=== PATIENT | male | born 1995 | race Caucasian/White ===

== ENCOUNTER 2021-08-24 10:07 | Outpatient (REF) | payer OTHER, SELFPAY ==
[2021-08-24 13:39] LABS: Hematocrit 41.6 % (42.0-52.0); Hemoglobin 14.2 g/dl (14.0-18.0); Mean Corpuscular HGB Conc 34.1 g/dl (31.0-36.0); Mean Corpuscular Hemoglobin 30.8 pg (27.0-33.0); Mean Corpuscular Volume 90.2 fL (80.0-98.0); Mean Platelet Volume 11.2 fL (9.4-12.4); Platelet Count 195 X10*3/uL (160-400); Red Blood Count 4.61 X10*6/uL (4.60-5.80); Red Cell Distribution Width 12.9 % (11.0-16.0)
[2021-08-24 13:50] LABS: WBC ABN SCTR FOR CBC 1
[2021-08-24 14:12] LABS: Atypical Lymphs Percent Manual 9 % (0-6); Band Neutrophils Percent 2 % (3-5); Basophils Percent Manual 1 % (0-2); Lymphocytes Percent Manual 61 % (20-40); Monocytes Percent Manual 13 % (2-11); Neutrophils Percent Manual 14 % (45-73)
[2021-08-24 14:17] LABS: Platelet Estimate NORMAL (NORMAL); Platelet Morphology Comment NORMAL; RBC Morphology NORMAL; Smudge Cells PRESENT
[2021-08-24 14:18] LABS: Erythrocyte Sedimentation Rate 7 MM/HR (0-15)
[2021-08-24 14:20] LABS: Atypical Lymph Absolute Manual 1.3 x10*3/uL; Basophils Abs Manual 0.1 X10*3/uL (0.0-0.2); Lymphocytes Absolute Manual 8.9 X10*3/uL (1.2-4.9); Monocytes Absolute Manual 1.9 X10*3/uL (0.1-1.2); Neutrophils Absolute Manual 2.3 X10*3/uL (2.0-8.3); White Blood Count 14.6 X10*3/uL (4.8-10.8)
[2021-08-24 14:21] LABS: Alanine Aminotransferase 1199 U/L (0-40); Albumin Level 4.5 g/dL (3.5-5.0); Alkaline Phosphatase 372 U/L (39-117); Anion Gap 15 (12-20); Aspartate Amino Transferase 404 U/L (5-37); Bilirubin Total 1.3 mg/dL (0.0-1.0); Blood Urea Nitrogen 8 mg/dL (9-16); Calcium 9.2 mg/dL (8.4-10.2); Carbon Dioxide 24 mmol/L (22-29); Chloride 104 mmol/L (96-108); Estimated Glomerular Filt Rate > 60; Glucose Fasting 98 mg/dL (60-99); Potassium 4.3 mmol/L (3.3-5.1); Sodium 139 mmol/L (135-145); Total Protein 7.5 g/dL (6.5-8.0)
[2021-08-24 14:50] LABS: Monotest Positive (Negative)
== END 2021-08-24 10:08 | disposition home or self-care (01) ==
LOC: HO.10HDL 10:07
PROVIDERS: Visit Provider Internal Medicine Medical Oncology
DX: Z20.828 Contact with and (suspected) exposure to other viral communicable diseases (principal)
CPT/HCPCS: 36415; 80053; 85007; 85027; 85652; 86308

== ENCOUNTER 2021-08-29 14:17 | Outpatient (REF) | payer OTHER, SELFPAY | END 2021-08-29 14:18 | disposition home or self-care (01) | LOC: HO.LNP 14:17 | PROVIDERS: Visit Provider Internal Medicine Medical Oncology | DX: J04.0 Acute laryngitis (principal) | CPT/HCPCS: 87071; 87147; 87205 ==

== ENCOUNTER → 2023-01-16 10:28 | Outpatient (REF) | payer OTHER, SELFPAY ==
--- NOTE | 2023-01-16 11:35 | CA_ITS ---
Acquisition Time: 2023-01-16 10:42:58 Total Exercise Time: 00:14:08 Test Indications: CP Medications: SEE H Protocol: RAQUEL Max HR: 193 BPM 100% of Pred: 192 BPM Max BP: 174/070 mmHG Max Work Load: 17.2 METS Exercise stress test 14 min 8 sec of Raquel protocol achireving 100% MPHR, without anginal symptoms, once in recovery he reported 4/10 left chest squeezing, without arrythmia, with normotensive response to exercise, without EKG changes. CHest discomort gradually improved in recovery. Test reviewed with Dr. Kauffman. Msg sent to Dr Ledesma with above report. Referred By: Marques Ledesma Overread By: JAMEY MITCHELL
== END ==
LOC: HO.CARD 10:28
PROVIDERS: Visit Provider Internal Medicine Medical Oncology
DX: R07.9 Chest pain, unspecified (principal)
CPT/HCPCS: 93017

== ENCOUNTER → 2023-06-02 13:42 | Outpatient (REF) | payer OTHER, SELFPAY ==
--- NOTE | 2023-06-02 13:46 | CA_ITS ---
Transthoracic Echocardiogram Patient (Last, First, Middle): Roland Rojas, Gender: Male Date of : 1995 Age: 28 Procedure Date: 06/02/2023 Procedure Type: Transthoracic Echocardiogram Location: OP Height: 175.26 cm Weight: 92.99 kg BSA: 2.09 m2 Heart Rate: bpm BP: 135 / 90 mmHg Crop Duster Helper: JUANA Referring MD: Marques Leedsma MD Symptoms: ATYPICAL CHEST PAIN, 407.89 MITRAL VALVE PROLAPSE 134.1 Study Quality: Adequate ECG Rhythm: Sinus Conclusions: - The left ventricular systolic function is normal. The calculated ejection fraction is 65% by biplane method. - No obvious valvular pathology seen on this study. Findings Left Ventricle Normal left ventricular cavity size. There is normal left ventricular wall thickness. The left ventricular systolic function is normal. The calculated ejection fraction is 65% by biplane method. There is no evidence of regional wall motion abnormalities. Diastolic function is normal for age. LV peak GLS -18.7%. Right Ventricle Normal right ventricular cavity size and systolic function. Atria Both atria are normal in size. Aortic Valve There is a normal trileaflet aortic valve. There is no aortic valve stenosis. There is no aortic valve regurgitation. Mitral Valve The mitral valve appears normal. There is trace mitral valve regurgitation. There is no mitral valve stenosis. Pulmonic Valve The pulmonic valve is likely normal. Tricuspid Valve Normal tricuspid valve structure. There is trace tricuspid valve regurgitation. There is no evidence of pulmonary hypertension. Great Vessels The asc aorta and aortic arch are normal in size. Venous The inferior vena cava is normal in size and collapses greater than 50% with inspiration. Pericardium/Pleural There is no evidence of pericardial effusion. Prior Study Comparison No prior study available for comparison. Recommendations, Care & Conclusions No obvious valvular pathology seen on this study. Measurements 2D Linear Measurements IVSd: 0.86 0.6-0.9/0.6-1.0 cm LVIDd: 5.15 3.9-5.3/4.2-5.9 cm LVIDd Index: 2.46 2.4-3.2/2.2-3.1 cm/m2 LVIDs: 3.29 2.0-3.6 cm LVPWd: 0.83 0.7-1.1 cm LA Diam: 3.60 2.7-3.8/3.0-4.0 cm LAIDs Index: 1.72 1.5-2.3 cm/m2 LV Mass: 191.64 67-162/88-224 g LV Mass Index: 91.69 43-95/49-115 g/m2 LVOT Diam: 2.30 3.0+(-)1.3 cm 2D Systolic Function EF 4C: 58.10 >55% EF 2C: 69.10 >55% EF BiP: 64.60 >55% Mitral Valve MV Pk E: 0.86 MV PK A: 0.57 MV Decel Time: 258.00 E/A: 1.50 E'Lateral: 16.80 E'Medial: 8.59 E/E' Med: 10.00 E/E' Lat: 5.10 PHT: 76.00 MVA PHT: 2.89 Decel Addison: 3.32 Aortic Valve AoV Pk Jose: 1.24 AoV Mn Jose: 0.83 AoV VTI: 0.26 AoV Pk Grad: 6.00 Aov Mn Grad: 3.00 LUPE Cont.VTI: 3.85 LVOT LVOT Pk Jose: 1.25 LVOT Mn Jose: 0.81 LVOT VTI: 0.24 LVOT Pk Grad: 6.00 LVOT Mn Grad: 3.00 LVOT Diam: 2.30 LVOT Area: 4.15 Diastolic Function MV Pk E: 0.86 MV Pk A: 0.57 E/A: 1.50 E'Medial: 8.59 E/E' Med: 10.00 E' Laterial: 16.80 E/E' Lat: 5.10 Right Ventricle TAPSE (mm): 24.40 TVS' Jose: 13.40 Tricuspid Valve TR Pk Jose: 2.21 TR Pk Grad: 20.00 RA Press: 3.00 RVSP: 23.00 Great Vessels Aorta Sinus of Valsalva: 3.29 2.0-3.[address] Ridge: 2.74 1.7-3.4 cm Ao Asc: 2.90 2.1-3.4 cm Ao Arch: 2.90 Updated in Other Vendor System with Status of Final Anthony Astudillo MD electronically signed on 06/03/2023 10:37:56 AM with status of Final
== END ==
LOC: HO.CARD 13:42
PROVIDERS: PCP Internal Medicine Medical Oncology; Visit Provider Internal Medicine Medical Oncology
DX: R07.89 Other chest pain (principal); I34.1 Nonrheumatic mitral (valve) prolapse
CPT/HCPCS: 93306; 93356

== ENCOUNTER → 2023-06-02 13:46 | Outpatient (BNV) | payer OTHER, SELFPAY | PROVIDERS: PCP Internal Medicine Medical Oncology; Visit Provider Internal Medicine | DX: R07.89 Other chest pain (principal) | CPT/HCPCS: 93306 ==

== ENCOUNTER 2024-12-14 09:40 | Outpatient (REF) | payer OTHER, SELFPAY ==
--- NOTE | ~2024-12-14 | US_ITS ---
EXAMINATION: US ABDOMEN HISTORY: RLQ ABD PAIN TECHNIQUE: Real-time grayscale ultrasound imaging of the abdomen was performed and images were reviewed. COMPARISON: There are no prior studies for comparison. FINDINGS: Liver: The right lobe of the liver measures 15.6 cm in size. The left lobe of the liver measures 8.5 cm in size. The liver demonstrates normal homogeneous echotexture. No focal mass or intrahepatic biliary ductal dilatation is identified. There is normal hepatopedal flow in the portal vein. Gallbladder and biliary tree: The gallbladder is unremarkable, without evidence of calculi, wall thickening, or pericholecystic fluid. There is no sonographic Strickland sign. The common bile duct is normal in caliber measuring 3 mm. Kidneys: The right kidney measures 12.7 cm in length. The left kidney measures 11.6 cm in length. The kidneys are unremarkable, without evidence of masses, hydronephrosis, or calculi. Pancreas: The pancreatic head, neck, and body are unremarkable. The pancreatic tail is obscured by bowel gas. Spleen: The spleen is normal in size and contour, measuring 12.2 cm in length. Abdominal aorta and inferior vena cava: The visualized portions of the abdominal aorta and inferior vena cava are normal in caliber. There is no free fluid in the abdomen. US/US abdomen complete IMPRESSION: Unremarkable abdominal ultrasound. Electronically signed by: Marques Young MD 12/14/2024 10:51 AM EDT
--- OUTSIDE RECORDS SUMMARY | 2024-12-14 10:57 | XMS_ITS | Clinical Summary ---
Author Organization [facility] ity Address [address] [place] [address] Care Team Providers Care Tire Center Supervisor Name Role Phone Unavailable Primary Care Provider Unavailabl e Social History Tobacco Use Types Packs/Day Years Used Date Smoking Tobacco: Never Assessed Sex and Gender Information Value Date Recorded Sex Assigned at Not on file Legal Sex Male 5:53 PM EST Gender Identity Not on file Sexual Orientation Not on file Plan of Treatment Health Maintenance Due Date Last Done Comments DTaP,Tdap,and Td Vaccines (1 - Tdap) 2013 Hepatitis B Vaccines (1 of 3 - 19+ 3-dose series) 2013 Depression Screening 08/24/2022 HIV Screening 08/24/2022 Hepatitis C Screening 08/24/2022 Social Influencers of Health Screening 08/24/2022 COVID-19 Vaccine ( - 2023-2 5 season) 2024 Influenza Vaccine (#1) 2024 HIB Vaccines Aged Out No longer eligi ble based on patient's age to complete this topic HPV Vaccines Aged Out No longer eligi ble based on patient's age to complete this topic Hepatitis A Vaccines Aged Out No long er eligible based on patient's age to complete this topic IPV Vaccines Aged Out No longer eligi ble based on patient's age to complete this topic MMR Vaccines Aged Out No longer eligi ble based on patient's age to complete this topic Meningococcal ACWY Vaccine Aged Out N o longer eligible based on patient's age to complete this topic Meningococcal B Vacine Aged Out No lo nger eligible based on patient's age to complete this topic Pneumococcal Vaccine: Pediat rics (0 to 5 Years) and At-Risk Patients (6 to 64 Years) Aged Out No longer eligible b ased on patient's age to complete this topic RSV Immunization Patients Un sai 20 months Aged Out No longer eligible b ased on patient's age to complete this topic Varicella Vaccines Aged Out No longer eligible based on patient's age to complete this topic
--- OUTSIDE RECORDS SUMMARY | 2024-12-14 10:57 | XMS_ITS ---
Author Organization Marques Ledesma III, MD Address [address] [place] [address] [place] [address] Care Team Providers Care Park Activities Coordinator Name Role Phone Marques Ledesma Primary Care Provider REASON FOR VISIT Annual Exam Social History Sex Assigned At : Social History Observation Description Sex Assigned At Male Encounters Encounter Location Date Provider Diagnosis Marques Ledesma III, MD [address] [place] [address] [address] [facility] [address] 10/29/2024 Marques Ledesma Plan Of Treatment Next Appt Details Provider Name:Marques Ledesma, 12/20/2024 03:15:00 PM, [address] [place] [address] [place], [address], Provider Name:Marques Ledesma, 03/22/2025 02:30:00 PM, [address] [place] [address] [place], [address], Progress Notes * ERASMO ROJAS JrDOB:03/1995 (29 yo M)Acc No.[id number]:10/29/2024 Progress Notes Patient:?ERASMO ROJAS Provider:?Marques Ledesma MD :1995???Age:29 Y???Sex:Male Frank e:10/29/2024 Address:[address] [place] [address] Subjective: * Chief Complaints: * ???1. Annual Exam. * Medical History:? Objective: * Vitals:? Assessment: Plan: * Treatment: * Images: * The named appointment provid er may or may not be the originator of this progress note, and it is not deemed complete until electronically signed by the appointment provider. Sign off status: Pending * Provider:?Marques Ledesma MD Date:?03/2025 Generated for Radha gillis/Sunny/eTphuongsmitting on:?12/14/2024 10:56 AM EDT
--- OUTSIDE RECORDS SUMMARY | 2024-12-14 10:57 | XMS_ITS | Clinical Summary ---
Author Organization [address] Address [address] [place] [phone] Phone Care Team Providers Care Dyed Raw Stock Blower Feeder Name Role Phone Marques Ledesma MD Primary Care Provider [phone] Allergies Active Allergy Reactions Criticality Noted Date Comments Bee Venom Protein (Honey Bee) Anaphylaxis High 11/01 Cephalexin Throat Closes 11/01/2024 Azithromycin Anaphylaxis High 11/01/2024 Encounters Date Type Department Care Team Description 11/01/2024 12:00 PM EST - 11/01/2024 1:36 PM EST Emergency Emergency Department [address] [place] [phone] Chest pain, unspecified type (Primary Dx) Discharge Disposition: Home or Self Care 11/01/2024 Travel from Last 3 Months Social History Tobacco Use Types Packs/Day Years Used Date Smoking Tobacco: Never Smokeless Tobacco: Never Tobacco Cessation:Counseling Given: Not Answered Alcohol Use Standard Drinks/Week Comments Not Asked 0 (1 standard drink = 0.6 oz pur e alcohol) socially Interpersonal Safety Answer Date Record ed Is there anyone in your life that is hurting or threatening you in anyway? no 11/01/2024 Physical Indicators of Abuse No evidence of phys ical abuse 11/01/2024 Sex and Gender Information Value Date Recorded Sex Assigned at Not on file Legal Sex Male 11:49 AM EST Gender Identity Not on file Sexual Orientation Not on file Last Filed Vital Signs Vital Sign Reading Time Taken Comments Blood Pressure 132/83 11/01/2024 1:35 PM EST Pulse 77 11/01/2024 1:35 PM EST Temperature 36.4 ??C (97.5 ??F) 11/01/2024 11:[address] Respiratory Rate 16 11/01/2024 1:35 PM EST Oxygen Saturation 95% 11/01/2024 1:35 PM EST Inhaled Oxygen Concentration - - Weight 89.6 kg (197 lb 8.5 oz) 11/01/2024 11:59 AM EST Height - - Body Mass Index - - Plan of Treatment Health Maintenance Due Date Last Done Comments HIV screening 2007 Hepatitis C screening 01/27/2012 Tetanus adult (Td q 10,TDAP once) 2014 Influenza vaccine 04/22/2024 08/08/2020 Covid-19 vaccine series ( - 2023- season) 2024 RSV Immunization (1 - 1-dose 75+ series) 2069 Meningococcal Vaccine Aged Out No francisco amanda eligible based on patient's age to complete this topic Pneumococcal Vaccine (2 - 49 years) Aged Out No longer eligible b ased on patient's age to complete this topic Procedures Procedure Name Priority Date/Time Associated Diagnosis Comments XR CHEST PA AND LATERAL STAT 11/01/2024 1:02 PM EST EXTRA GOLD TOP SPECIMEN ([facility]) STAT 11/01/2024 12:24 PM EST EXTRA BLUE TOP SPECIMEN ([facility]) STAT 11/01/2024 12:24 PM EST CBC AND DIFFERENTIAL STAT 11/01/2024 12:23 PM EST BASIC METABOLIC PANEL STAT 11/01/2024 12:23 PM EST CBC WITH AUTO DIFFERENTIAL STAT 11/01/2024 12:23 PM EST BASIC METABOLIC PANEL STAT 11/01/2024 12:23 PM EST TROPONIN T HIGH SENSITIVITY, 0 HOUR BASELINE WITH REFLEX ([facility] LMW YH) STAT 11/01/2024 12:23 PM EST EKG Routine 11/01/2024 11:56 AM EST from Last 3 Months Results * CXR (11/01/2024 1:02 PM EST) Anatomical Region Laterality Modality Chest Radiographic Maame ging 11/01/2024 1:38 PM EST Impressions 11/01/2024 1:38 PM EST No evidence for an acute cardiopneumonic process. [facility] Radiology Notification System Classification: Routine. Reported and signed by: ??Nav Champion MD Narrative 11/01/2024 1:38 PM EST PROCEDURE: ??XR CHEST PA AND LATERAL CLINICAL INDICATION: CP not otherwise specified TECHNIQUE: PA and lateral views COMPARISON: ??No prior imaging available FINDINGS: Lungs are relatively well expanded without evidence for infiltrate. ??Pleural spaces appear clear. ??Cardiomediastinal silhouette and pulmonary vasculature appear within normal limits. ??No acute osseous fracture noted. Procedure Note Nav Champion MD - 11/01/2024 PROCEDURE: XR CHEST PA AND LATERAL CLINICAL INDICATION: CP not otherwise specified TECHNIQUE: PA and lateral views COMPARISON: No prior imaging available FINDINGS: Lungs are relatively well expanded without evidence for infiltrate.Pleural spaces appear clear. Cardiomediastinal silhouette and pulmonaryvasculature appear within normal limits. No acute osseous fracturenoted. IMPRESSION: No evidence for an acute cardiopneumonic process. [facility] Radiology Notification System Classification: Routine. Reported and signed by: Nav Champion MD Meryl RIVERA IMG DIAGNOSTIC IMAGING ORDERABLES Final Result * Extra blue top specimen (11/01/2024 12:24 PM EST) Hold Specimen Hold 11/01/2024 9:00 PM EST [facility] Blood Venipuncture / Unknown 11/01/2024 12:24 PM EST 11/01/2024 12:27 PM EST Meryl RIVERA LAB BLOOD ORDERAB[place] [address], [facility] [phone] * Extra gold top specimen (11/01/2024 12:24 PM EST) Blood Venipuncture / Unknown 11/01/2024 12:24 PM EST 11/01/2024 12:27 PM EST Meryl RIVERA LAB BLOOD ORDERABLES [place] [address], [facility] [phone] * (ABNORMAL) Basic metabolic panel (11/01/2024 12:23 PM EST) [facility] Glucose 117(H) 65 - 110 mg/dL 11/01/2024 1:00 PM [facility] Comment: Non-fasting: ??65-110 mg/dL Fasting (minimum 6 hrs): ??65-99 mg/dL BUN 16 7 - 18 mg/dL 11/01/2024 1:00 PM [facility] Creatinine 0.98 0.70 - 1.30 mg/dL 11/01/2024 1:00 PM [facility] Sodium 140 136 - 145 mmol/L 11/01/2024 1:00 PM [facility] Potassium 3.7 3.5 - 5.1 mmol/L 11/01/2024 1:00 PM [facility] Chloride 106 98 - 107 mmol/L 11/01/2024 1:00 PM [facility] CO2 28 21 - 32 mmol/L 11/01/2024 1:00 PM [facility] Anion Gap 6 5 - 15 mmol/L 11/01/2024 1:00 PM [facility] Calcium 9.5 8.5 - 10.1 mg/dL 11/01/2024 1:00 PM [facility] eGFR (Creatinine) >60 >=60 mL/min/1.7 3m2 11/01/2024 1:00 PM [facility] Comment: [facility] utilizes CKD-EPI Creatinine 2020 to report eGFR. Values < 60 mL/min/1.73 m2 may indicate CKD if present for more than three months AND creatinine is at steady state. The eGFR provides a rough estimate of kidney function. For further guidance, please refer to the CKD: Adult Banjo Repairer Signature pathway. Creatinine Delta 11/01/2024 1:00 PM [facility] Comment:No previous creatini ne <5.00 mg/dL is available within the previous 12 months to calculate a delta creatinine. Blood Venipuncture / Unknown 11/01/2024 12:23 PM EST 11/01/2024 12:27 PM EST Meryl RIVERA LAB BLOOD ORDERABLES Fi nal Result Performing Organization Address [facility] [place] [address], [facility] [phone] * Troponin T High Sensitivity, Emergency; 0 hour baseline with reflex (1 hour and 3 hour) (2:23 PM EST) [facility] High Sensitivity Troponin T <6 See Comment ng/L 11/01/2024 12:55 PM [facility] Comment:High Sensitivity Tro ponin T levels should be interpreted in the context of the [facility] Care Signature pathway. Blood Venipuncture / Unknown 11/01/2024 12:23 PM EST 11/01/2024 12:27 PM EST Meryl RIVERA LAB BLOOD ORDERABLES Fi nal Result Performing Organization Address [facility] [place] [address], [facility] [phone] * (ABNORMAL) CBC auto differential (11/01/2024 12:23 PM EST) [facility] WBC 4.7 4.0 - 11.0 x1000/??L 11/01/2024 12:30 PM [facility] RBC 4.93 4.00 - 6.00 M/??L 11/01/2024 12:30 PM [facility] Hemoglobin 15.2 13.2 - 17.1 g/dL 11/01/2024 12:30 PM [facility] Hematocrit 42.00 38.50 - 50.00 % 11/01/2024 12:30 PM [facility] MCV 85.2 80.0 - 100.0 fL 11/01/2024 12:30 PM [facility] MCH 30.8 27.0 - 33.0 pg 11/01/2024 12:30 PM [facility] MCHC 36.2(H) 31.0 - 36.0 g/dL 11/01/2024 12:30 PM [facility] RDW-CV 12.0 11.0 - 15.0 % 11/01/2024 12:30 PM [facility] Platelets 186 150 - 420 x1000/??L 11/01/2024 12:30 PM [facility] MPV 10.9 8.0 - 12.0 fL 11/01/2024 12:30 PM [facility] Neutrophils 53.6 39.0 - 72.0 % 11/01/2024 12:30 PM [facility] Lymphocytes 38.3 17.0 - 50.0 % 11/01/2024 12:30 PM [facility] Monocytes 6.0 4.0 - 12.0 % 11/01/2024 12:30 PM [facility] Eosinophils 1.1 0.0 - 5.0 % 11/01/2024 12:30 PM [facility] Basophil 0.6 0.0 - 1.4 % 11/01/2024 12:30 PM [facility] Immature Granulocytes 0.4 0.0 - 1.0 % 11/01/2024 12:30 PM [facility] nRBC 0.0 0.0 - 1.0 % 11/01/2024 12:30 PM [facility] Absolute Lymphocyte Count 1.78 0.60 - 3.70 x 1000/??L 11/01/2024 12:30 PM [facility] Monocyte Absolute Count 0.28 0.00 - 1.00 x 1000/??L 11/01/2024 12:30 PM [facility] Eosinophil Absolute Count 0.05 0.00 - 1.00 x 1000/??L 11/01/2024 12:30 PM [facility] Basophil Absolute Count 0.03 0.00 - 1.00 x 1000/??L 11/01/2024 12:30 PM [facility] Absolute Immature Granulocyte Count 0.02 0.00 - 0.30 x 1000/??L 11/01/2024 12:30 PM [facility] Absolute nRBC 0.00 0.00 - 1.00 x 1000/??L 11/01/2024 12:30 PM [facility] ANC (Abs Neutrophil Count) 2.49 2.00 - 7.60 x 1000/??L 11/01/2024 12:30 PM EST [facility] Blood Venipuncture / Unknown 11/01/2024 12:23 PM EST 11/01/2024 12:27 PM EST us Meryl RIVERA LAB BLOOD ORDERABLES Fi nal Result Performing Organization Address [facility] [place] [address], [facility] [phone] * EKG (11/01/2024 11:56 AM EST) Heart Rate 72 bpm [facility] EKG QRS Interval 101 ms [facility] EKG QT Interval 380 ms [facility] EKG QTC Interval 416 ms [facility] EKG P [place] 36 deg [facility] EKG QRS [place] 31 deg [facility] EKG T Wave [place] 31 deg [facility] EKG P-R Interval 148 msec [facility] EKG SEVERITY Normal ECG severity [facility] EKG Comment::Sinus rhythm:ST jesenia v, probable normal early repol pattern:No previous:Electronically Signed On 11-01-2024 13:25:21 EST by Fran Virk MD 11/01/2024 11:5 6 AM EST us Mikhail Cagle DO ECG ORDERABLES Edite d Result - Final Performing Organization Address City/[facility]/ZIP Co de Phone Number [facility] EKG from Last 3 Months Insurance [facility] [employer] [employer] Aniika [facility] CLARITY [phone] Aniika [facility] [employer]ARITY Care Teams Dyed Raw Stock Blower Feeder Relationship Specialty Start Date End Date Marques Ledesma MD [address] [place] [address] [place] [phone] PCP - General Medical Oncology 11/01/24
--- OUTSIDE RECORDS SUMMARY | 2024-12-14 10:57 | XMS_ITS ---
Author Organization Marques Ledesma III, MD Address [address] [place] [address] [place] [address] Care Team Providers Care Manager Contracting Name Role Phone Marques Ledesma Primary Care Provider [phone] Allergies Allergen (clinical drug ingredient) Drug/Non Drug Allergy documented on EMR Reaction Allergy Type Onset Date Status Bee Sting Unknown Allergy Active azithromycin Zithromax Unknown Drug Allergy Acti ve Keflex Unknown Drug Allergy Active REASON FOR VISIT Follow up Medications Medication SIG (Take, Route, Frequency, Duration) Notes Start Date End Date Status Sertraline HCl 100 MG TAKE 2 TABLETS BY MOUTH EVERY DAY Active Pantoprazole Sodium 20 MG 1 tablet Orall y Once a day 09/02/2024 Active [address]danset[address] 1 TABLET ON TH E TONGUE AND ALLOW TO DISSOLVE EVERY 4 HOURS NEEDED FOR NAUSEA Active Triamcinolone Acetonide 0.1 % 1 application Externally Twice a day 05/12/2024 Active EpiPen 2-Vitaliy 0.3 MG/0.3ML as directed In jection as directed for allergic reaction Active Social History Tobacco Use: Social History Observation Description Date Details (start date - stop date) Never Smoker NA - NA Sex Assigned At : Social History Observation Description Sex Assigned At Male Tobacco Use/Smoking Question Answer Notes Patient is a nonsmoker Additional Findings: Tobacco Non-User Aggressive non-smoker Encounters Encounter Location Date Provider Diagnosis Marques Ledesma III, MD [address] [place] [address] [place] [address] 11/26/2024 Marques Ledesma Plan Of Treatment Medication Medication Name Sig Start Date Stop Date Notes Sertraline HCl 100 MG TAKE 2 TABLETS BY MOUTH EVERY DAY Pantoprazole Sodium 20 MG 1 tablet Orally Once a day 09/[address] 1 TABLET ON TH E TONGUE AND ALLOW TO DISSOLVE EVERY 4 HOURS NEEDED FOR NAUSEA Triamcinolone Acetonide 0.1 % 1 applicat ion Externally Twice a day 05/12/2024 EpiPen 2-Vitaliy 0.3 MG/0.3ML as directed In jection as directed for allergic reaction Next Appt Details Provider Name:Marques Castillone, 12/20/2024 03:15:00 PM, [address] [place] [address] [address], [place], [id number], Provider Name:Marques Lombardorne, 03/22/2025 02:30:00 PM, [address] [place] [address] [address] [place], [place], [address], Progress Notes * ERASMO ROJAS JrDOB:03/1995 (29 yo M)Acc No.[id number]:11/26/2024 Progress Notes Patient:?ERASMO ROJAS Provider:?Marques Ledesma MD :1995???Age:29 Y???Sex:Male Frank e:11/26/2024 Address:[address] [place] [address] Subjective: * Chief Complaints: * ???1. Follow up. * HPI: ???COVID-19 Screening:?Questions?Have you had any new onset fever, chills, cough, congestion, sore throat, shortness of breath, muscle aches??No * ROS:?General/Constitutional:?pain?only normal aches and pains.?Chills?denies.?Fatigue?admits.?Fever?denies.?ENT:?Decreased hearing?denies.?Respiratory:?Cough?denies.?Cardiovascular:?Chest pain with exertion?denies.?Dyspnea on exertion?denies.?Shortness of breath?denies.?Gastrointestinal:?Constipation?denies.?Decreased appetite?denies.?Diarrhea?denies.?Heartburn?denies.?Nausea?denies.?Rectal bleeding?denies.?Vomiting?denies.?Hematology:?bruising?denies.?petechiae?denies.?Swollen glands?none have been noted.?Genitourinary:?Frequent urination?denies.?Musculoskeletal:?Muscle aches?denies.?Painful joints?denies.?Sciatica?denies.?Weakness?denies.?Skin:?Itching?denies.?Rash?denies.?Skin lesion(s)?denies.?Neurologic:?Difficulty speaking?denies.?Dizziness?denies.?Headache?denies.?Low back pain?denies.?Psychiatric:?Depressed mood?denies.? 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 He had a cold a few weeks ago. He has been seeing a bevel mill operator who has not found any heart- related issues. The patient is scheduled for an endoscopy in December. The patient is currently taking sertraline., No history. * Surgical History:?schwannoma removed right arm 2014, Right hip surgery, injury to the labrum 2014, Left foot surgery- removed a foreign body 2011, No history . * Hospitalization/Major Diagno stic Procedure:?No history . * Family History:?Father: mc lewis, Healthy and well.?Mother: alive, Healthy and well.? He has no brothers and sisters. His maternal grandmother had cancer of the pancreas. He has a history of OCD and anxiety. He is not aware of any other family history of mental illness. He is not aware of any family history of addiction or substance abuse. Grandmother had pancreatic cancer. * Social History:?Tobacco Use:?Tobacco Use/Smoking?Patient is a?nonsmoker ?Additional Findings: Tobacco Non-User?Aggressive non-smoker ???He is single and has no children. He was born in [facility] and went to school at [employer] studying criminal justice to be a ict help desk officer. 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 The patient works 50 hours a week. He has been trying to manage his slightly elevated cholesterol levels by walking more and watching his diet. He has been doing a lot of walking. 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 * Medications:?Taking Sertrali ne HCl 100 MG Tablet TAKE 2 TABLETS BY MOUTH EVERY DAY , Taking Ondansetron [address] 1 TABLET ON THE TONGUE AND ALLOW TO DISSOLVE EVERY 4 HOURS NEEDED FOR NAUSEA , Taking EpiPen 2-Vitaliy 0.3 MG/0.3ML Solution Auto-injector as directed Injection as directed for allergic reaction , Taking Triamcinolone Acetonide 0.1 % Cream 1 application Externally Twice a day , Taking Pantoprazole Sodium 20 MG Tablet Delayed Release 1 tablet Orally Once a day , Medication List reviewed and reconciled with the patient * Allergies:?Zithromax, Keflex , Bee Sting. Objective: * Vitals:? * Examination: ???General Examination: ?GENERAL APPEARANCE:?pleasant, well nourished, well developed, in no acute distress, calm and relaxed.?HEAD:?atraumatic, normocephalic.?EYES:?eomi, perrla, anicteric, conjugate.?EARS:?normal.?NOSE:?septum intact.?ORAL CAVITY:?normal, unremarkable.?NECK/THYROID:?no jugular venous distention, no carotid bruit, thyroid normal.?LYMPH NODES:?no enlarged lymph nodes,spleen normal.?SKIN:?no suspicious lesions, anicteric.?HEART:?no clicks, gallops, murmurs, or rubs, regular rhythm, S1, S2 normal, no s3, or vascular bruits.?LUNGS:?clear to auscultation .?BREASTS:??no masses palpable bilaterally.?ABDOMEN:?bowel sounds normal, no ascites, no organomegaly, no mass.?RECTAL EXAM:?not examined.?MUSCULOSKELETAL:?extremities unremarkable, no clubbing, cyanosis or edema.?PERIPHERAL PULSES:?normal.?NEUROLOGIC:?alert and oriented, cranial nerves 2-12 grossly intact, deep tendon reflexes 2+ symmetrical, motor strength normal upper and lower extremities, sensory exam intact.?PSYCH:?alert, oriented.? Assessment: Plan: * Treatment: * Images: * The named appointment provid er may or may not be the originator of this progress note, and it is not deemed complete until electronically signed by the appointment provider. Sign off status: Pending * Provider:?Marques Ledesma MD Date:?03/2025 Generated for Radha gillis/Sunny/eTransmitting on:?12/14/2024 10:56 AM EDT History and Physical Notes * HPI (History of Present Illness) Category Sub-Category Detail Notes COVID-19 Screening Questions Have you had any new onset fever, chills, cough, congestion, sore throat, shortness of breath, muscle aches?: No Examination Category Sub-Category Detail Notes General Examination GENERAL APPEARANCE: pleasant , well nourished, well developed, in no acute distress, calm and relaxed HEAD: atraumatic, normocep halic EYES: eomi, perrla, anicte latasha, conjugate EARS: normal NOSE: septum intact NECK/THYROID: no jugular venous di stention, no carotid bruit, thyroid normal HEART: no clicks, gallops, murmurs, or rubs, regular rhythm, S1, S2 normal, no s3, or vascular bruits LUNGS: clear to auscultatio n ABDOMEN: bowel sounds normal, no ascites, no organomegaly, no mass NEUROLOGIC: alert and oriented, cranial nerves 2-12 grossly intact, deep tendon reflexes 2+ symmetrical, motor strength normal upper and lower extremities, sensory exam intact SKIN: no suspicious lesion s, anicteric PERIPHERAL PULSES: normal BREASTS: no masses palpable b ilaterally MUSCULOSKELETAL: extremities unremark able, no clubbing, cyanosis or edema LYMPH NODES: no enlarged lymph no jono,spleen normal RECTAL EXAM: not examined PSYCH: alert, oriented ORAL CAVITY: normal, unremarkable
--- OUTSIDE RECORDS SUMMARY | 2024-12-14 10:57 | XMS_ITS ---
Author Organization Marques Ledesma III, MD Address [address] [place] [address] [place] [address] Care Team Providers Care Speech Teacher Name Role Phone Marques Ledesma Primary Care Provider REASON FOR VISIT Follow up Social History Sex Assigned At : Social History Observation Description Sex Assigned At Male Encounters Encounter Location Date Provider Diagnosis Marques Ledesma III, MD [address] [place] [address] [address] [facility] [address] 11/12/2024 Marques Ledesma Plan Of Treatment Next Appt Details Provider Name:Marques Ledesma, 12/20/2024 03:15:00 PM, [address] [place] [address] [place], [address], Provider Name:Marques Ledesma, 03/22/2025 02:30:00 PM, [address] [place] [address] [place], [phone], Progress Notes * ERASMO ROJAS JrDOB:03/1995 (29 yo M)Acc No.[id number]:11/12/2024 Progress Notes Patient:?ERASMO ROJAS Provider:?Marques Ledesma MD :1995???Age:29 Y???Sex:Male Frank e:11/12/2024 Address:[address] [place] [address] Subjective: * Chief Complaints: * ???1. Follow up. * Medical History:? Objective: * Vitals:? Assessment: Plan: * Treatment: * Images: * The named appointment provid er may or may not be the originator of this progress note, and it is not deemed complete until electronically signed by the appointment provider. Sign off status: Pending * Provider:?Marques Ledesma MD Date:?10/24 Generated for Radha gillis/Sunny/eTphuongsmitting on:?12/14/2024 10:56 AM EDT
== END 2024-12-14 09:41 | disposition home or self-care (01) ==
LOC: HO.US 09:40
PROVIDERS: PCP Internal Medicine Medical Oncology; Visit Provider Internal Medicine Medical Oncology
DX: R10.31 Right lower quadrant pain (principal); R10.11 Right upper quadrant pain
CPT/HCPCS: 76700

== ENCOUNTER → 2024-12-14 09:43 | Outpatient (BNV) | payer OTHER, SELFPAY | PROVIDERS: PCP Internal Medicine Medical Oncology; Visit Provider Radiology Diagnostic Radiology | DX: R10.31 Right lower quadrant pain (principal) | CPT/HCPCS: 76700 ==